=== PATIENT | male | born 1990 | race Caucasian/White ===

== ENCOUNTER 2023-06-20 14:33 | Emergency (ER) | payer OTHER, SELFPAY ==
[2023-06-20] VITALS (10 sets, daily range): BP systolic 110–147; BP diastolic 53–64; PULSE 73–88; RESP 18; TEMP 37.1; O2SAT 97–100; BMI 29.9
--- NOTE | 2023-06-20 15:27 | ED_ITS ---
HPI - Nausea/Vomiting/Diarrhea <Joshua Bose PA-C - Last Filed: 06/20/23 18:41> General Chief complaint: Nausea/Vomiting/Diarrhea Stated complaint: Hungover, N/V Time Seen by Provider: 06/20/23 14:51 Source: patient Mode of arrival: Ambulatory History of Present Illness HPI Narrative: This is a 32-year-old male presents to the emergency department due to viral episodes of nausea and vomiting since about midnight this morning. He states that he drank a box and a half of wine which is more than he usually drinks. Denies any chest pain, abdominal pain, or any other concerning signs or symptoms. States that the only reason he came he was with his because his job told him to. States that he was chronically anemic. Related Data Previous Rx's Medication Instructions Recorded chlordiazepoxide HCl 25 mg capsule See Rx Instructions .Route 06/20/23 .COMPLEX #12 caps chlordiazepoxide HCl 25 mg capsule See Rx Instructions .Route 06/20/23 .COMPLEX #12 caps Allergies Allergy/AdvReac Type Severity Reaction Status Date / Time No Known Drug Allergies Allergy Verified 06/20/23 14:43 Review of Systems <Joshua Bose PA-C - Last Filed: 06/20/23 18:41> Review of Systems Narrative: GENERAL: Denies chills, fatigue, malaise, fever, sweats. HEENT: Denies sinus pain, ear pain, sore throat, difficulty swallowing, dizziness. RESPIRATORY: Denies dyspnea, cough, wheezing, hemoptysis, sputum. CARDIOVASCULAR: Denies chest pain, palpitations, orthopnea, edema, GASTROINTESTINAL: Reports nausea, vomiting, denies abdominal pain, diarrhea, constipation, melena. : Denies dysuria, frequency, incontinence, hematuria, urinary retention. MUSCULOSKELETAL: denies weakness, joint pain, or bony pain SKIN: Mildly jaundiced NEUROLOGIC: Denies weakness, headache, numbness, change in speech, confusion, seizures, incoordination. PSYCHIATRIC: No concerning psychosocial issues. 12 point review of systems is negative except for those stated above Patient History <Joshua Bose PA-C - Last Filed: 06/20/23 18:41> Social History Smoking Status: Never smoker Smoking Status: Never smoker tobacco type: smokeless tobacco alcohol intake frequency: 0-2 drinks per day Substance Use Type: does not use Exam <LOLA Farah Last Filed: 06/20/23 18:41> Narrative Exam Narrative: GENERAL: Well-developed patient, in mild distress. HEAD: Atraumatic. Normocephalic. EYES: Pupils equal round and reactive. Extraocular motions intact. No scleral icterus. No injection or drainage. ENT: Nose without bleeding, purulent drainage. Throat without erythema, tonsillar hypertrophy or exudate. Airway patent. NECK: Trachea midline. Non tender EXTREMITIES: No edema or joint tenderness. NEURO: AOx3. SKIN: No rash or erythema of visible areas Abdomen: No tenderness to palpation Initial Vital Signs Initial Vital Signs: Vital Signs Temperature 98.7 F 06/20/23 14:43 Pulse Rate 87 06/20/23 14:43 Respiratory Rate 18 06/20/23 14:43 Blood Pressure 147/64 H 06/20/23 14:43 Pulse Oximetry 99 06/20/23 14:43 Oxygen Delivery Method Room Air 06/20/23 14:43 <Sary Courtney DO - Last Filed: 06/21/23 14:39> Initial Vital Signs Initial Vital Signs: Vital Signs Temperature 98.7 F 06/20/23 14:43 Pulse Rate 87 06/20/23 14:43 Respiratory Rate 18 06/20/23 14:43 Blood Pressure 147/64 H 06/20/23 14:43 Pulse Oximetry 99 06/20/23 14:43 Oxygen Delivery Method Room Air 06/20/23 14:43 Course <LOLA Farah Last Filed: 06/20/23 18:41> Orders Ordered: Discontinued Medications Folic Acid (Folic Acid 1 Mg Tablet) 1 mg PO NOW ONE Stop: 06/20/23 16:23 Last Admin: 06/20/23 16:38 Dose: 1 mg Documented By: RB Sodium Chloride (Normal Saline 0.9%) 1,000 mls @ 1,000 mls/hr IV BOLUS ONE Stop: 06/20/23 15:46 Last Infusion: 06/20/23 16:48 Dose: Infused Documented By: Admin: 06/20/23 15:32 Dose: 1,000 mls/hr Documented By: RB Thiamine HCl 100 mg/ Sodium (Chloride) 101 mls @ 404 mls/hr IV NOW ONE Stop: 06/20/23 16:23 Last Infusion: 06/20/23 17:08 Dose: Infused Documented By: Admin: 06/20/23 16:39 Dose: 404 mls/hr Documented By: RB Ondansetron HCl (Ondansetron 4 Mg Odt) 4 mg PO NOW PRN PRN Reason: Nausea And Vomiting Ondansetron HCl (Ondansetron 4 Mg/2 Ml Inj) 4 mg IV NOW PRN PRN Reason: Nausea And Vomiting Last Admin: 06/20/23 15:32 Dose: 4 mg Documented By: RB Phenobarbital (Phenobarbital 65 Mg/Ml Vial) 260 mg IV NOW ONE Stop: 06/20/23 16:11 Last Admin: 06/20/23 16:38 Dose: 260 mg Documented By: RB Vital Signs Vital signs: Vital Signs - 8 hr 06/20/23 14:43 06/20/23 16:10 06/20/23 16:15 Temperature 98.7 F Pulse Rate 87 75 76 Respiratory Rate 18 18 18 Blood Pressure 147/64 H 110/53 L 117/61 Pulse Oximetry 99 100 100 Oxygen Delivery Method Room Air Room Air 06/20/23 16:30 06/20/23 16:45 06/20/23 17:00 Temperature Pulse Rate 73 75 76 Respiratory Rate 18 18 18 Blood Pressure 120/61 118/63 123/57 L Pulse Oximetry 99 98 98 Oxygen Delivery Method Room Air Room Air Room Air 06/20/23 17:15 06/20/23 17:30 06/20/23 17:45 Temperature Pulse Rate 78 77 88 Respiratory Rate 18 Blood Pressure 118/62 115/58 L 116/58 L Pulse Oximetry 97 98 99 Oxygen Delivery Method Room Air Room Air 06/20/23 18:00 Temperature Pulse Rate 79 Respiratory Rate Blood Pressure 114/58 L Pulse Oximetry 98 Oxygen Delivery Method Room Air <Sary Courtney DO - Last Filed: 06/21/23 14:39> Orders Ordered: Discontinued Medications Folic Acid (Folic Acid 1 Mg Tablet) 1 mg PO NOW ONE Stop: 06/20/23 16:23 Last Admin: 06/20/23 16:38 Dose: 1 mg Documented By: BREANNE Sodium Chloride (Normal Saline 0.9%) 1,000 mls @ 1,000 mls/hr IV BOLUS ONE Stop: 06/20/23 15:46 Last Infusion: 06/20/23 16:48 Dose: Infused Documented By: Admin: 06/20/23 15:32 Dose: 1,000 mls/hr Documented By: BREANNE Thiamine HCl 100 mg/ Sodium (Chloride) 101 mls @ 404 mls/hr IV NOW ONE Stop: 06/20/23 16:23 Last Infusion: 06/20/23 17:08 Dose: Infused Documented By: Admin: 06/20/23 16:39 Dose: 404 mls/hr Documented By: BREANNE Ondansetron HCl (Ondansetron 4 Mg Odt) 4 mg PO NOW PRN PRN Reason: Nausea And Vomiting Ondansetron HCl (Ondansetron 4 Mg/2 Ml Inj) 4 mg IV NOW PRN PRN Reason: Nausea And Vomiting Last Admin: 06/20/23 15:32 Dose: 4 mg Documented By: BREANNE Phenobarbital (Phenobarbital 65 Mg/Ml Vial) 260 mg IV NOW ONE Stop: 06/20/23 16:11 Last Admin: 06/20/23 16:38 Dose: 260 mg Documented By: BREANNE Vital Signs Vital signs: Vital Signs - 8 hr 06/20/23 14:43 06/20/23 16:10 06/20/23 16:15 Temperature 98.7 F Pulse Rate 87 75 76 Respiratory Rate 18 18 18 Blood Pressure 147/64 H 110/53 L 117/61 Pulse Oximetry 99 100 100 Oxygen Delivery Method Room Air Room Air 06/20/23 16:30 06/20/23 16:45 06/20/23 17:00 Temperature Pulse Rate 73 75 76 Respiratory Rate 18 18 18 Blood Pressure 120/61 118/63 123/57 L Pulse Oximetry 99 98 98 Oxygen Delivery Method Room Air Room Air Room Air 06/20/23 17:15 06/20/23 17:30 06/20/23 17:45 Temperature Pulse Rate 78 77 88 Respiratory Rate 18 Blood Pressure 118/62 115/58 L 116/58 L Pulse Oximetry 97 98 99 Oxygen Delivery Method Room Air Room Air 06/20/23 18:00 Temperature Pulse Rate 79 Respiratory Rate Blood Pressure 114/58 L Pulse Oximetry 98 Oxygen Delivery Method Room Air MDM - Nausea/Vomiting/Diarrhea <Joshua Bose PA-C - Last Filed: 06/20/23 18:41> Lab Data 06/20/23 15:20 06/20/23 15:20 Labs: Lab Results 06/20/23 Range/Units 15:20 WBC 3.9 L (4.5-11.0) X10^3/uL RBC 3.22 L (4.5-5.9) X10^6/uL Hgb 8.6 L (13.5-17.5) g/dL Hct 26.0 L (41-53) % MCV 80.9 (80-100) fL MCH 26.6 (26-34) PG MCHC 32.9 (30-36) % RDW 18.4 H (11.6-14.8) % Plt Count 100 L (150-400) X10^3/uL Neut % (Auto) 77.4 H (50-75) % Lymph % (Auto) 10.1 L (25-40) % [place] % (Auto) 10.4 (3-14) % Eos % (Auto) 0.1 L (2-4) % Baso % (Auto) 2.0 (0-2) % Neut # (Auto) 3000 (2570-1057) /uL Lymph # (Auto) 400 L (2683-4631) /uL [place] # (Auto) 400 (0-900) /uL Eos # (Auto) 0 (0-450) /uL Baso # (Auto) 100 (0-100) /uL PT 15.0 H (9.4-12.5) SECONDS INR 1.3 (0.9-1.3) Sodium 139 (137-145) mmol/L Potassium 3.8 (3.4-5.1) mmol/L Chloride 105 (98-107) mmol/L Carbon Dioxide 26 (22-32) mmol/L BUN 8 L (9-20) mg/dL Creatinine 0.42 L (0.66-1.25) mg/dL Estimated GFR > 60 (>60) mL/min BUN/Creatinine Ratio 19.0 (6-22) Glucose 97 (70-100) mg/dL Calcium 9.3 (8.4-10.2) mg/dL Total Bilirubin 5.8 H (0.2-1.3) mg/dL AST 146 H (17-59) IU/L ALT 44 (<50) IU/L Alkaline Phosphatase 142 H (38-126) U/L Total Protein 7.6 (6.3-8.2) g/dL Albumin 4.4 (3.5-5.0) g/dL Globulin 3.2 (1.7-4.1) g/dL Albumin/Globulin Ratio 1.4 (1.0-2.8) Lipase 209 (23-300) U/L Acetaminophen < 10 (10-30) ug/mL Ethyl Alcohol < 10 ( - 10) mg/dL Imaging Data US - abdomen: Radiologist's Impression: [address] [address] Ultrasound Report Signed Patient: Rell Jones MR#: [id number] : 1990 Acct:[id number] Age/Sex: 32 / M Date of Service: 06/20/23 Loc: ED Accession Number: [id number] Procedure: US abdomen limited Ordering Provider: Sary Courtney D.O. PROCEDURE: US ABDOMEN LIMITED INDICATIONS: RUQ elevated bili, etoh abuse TECHNIQUE: Real-time scanning was performed of the abdominal and retroperitoneal organs, with image documentation. COMPARISON: None. FINDINGS: Liver: Liver is normal in size and demonstrates diffusely increased echotexture. Portal vein is patent with hepatopetal flow. Gallbladder: There are mobile gallstones. Gallbladder is distended. No wall thickening. No pericholecystic edema. Negative sonographic Silva's sign. Biliary ducts: Intrahepatic bile ducts are non-dilated. Extrahepatic bile duct caliber measures 5.7 mm. Normal is 6-7 mm or less in diameter, or 10 mm or less post-cholecystectomy. Pancreas: Obscured by overlying bowel gas. Miscellaneous: No free abdominal fluid. IMPRESSION: 1. Diffusely increased hepatic echotexture. This finding is most likely secondary to hepatic fatty infiltration although other hepatocellular disease may have a similar appearance. Recommend clinical correlation. 2. Cholelithiasis. No ultrasound findings to suggest acute cholecystitis. 3. Pancreas obscured by overlying bowel gas. Dictated by: Max Zhou M.D. on 06/20/2023 at 16:59 Approved by: Max Zhou M.D. on 06/20/2023 at 17:02 MDM Narrative Medical decision making narrative: ED course: This is a 32-year-old male presenting to the emergency department due to nausea and vomiting after drinking more than usual last night. During the course of the counter he was noted to develop some diaphoresis as well as tremors with a CIWA score of 9. Phenobarbital was given which significantly improved his symptoms. He was lab work was notable for a elevated bilirubin. Right upper quadrant ultrasound was ordered which showed diffusely increased hepatic echotexture most likely secondary to hepatic fatty infiltration. Recommended he follow up with GI outpatient regarding this. It also showed cholelithiasis with the elevated bilirubin of 5.8. Patient not presenting with any significant abdominal tenderness to palpation and will follow up with GI outpatient regarding this. Did offer him a Librium prescription which patient says he would like to try. Patient is comfortable discharging home. No other significant abnormalities. CC: Nausea and vomiting Complicating co-morbidities: Chronic alcohol use Data collected from: Previous notes Medical records reviewed: Patient was not been to this emergency department in the past. Differential considered, but not limited to: Acute alcohol withdrawal, alcohol intoxication, gastroenteritis Exam documented above, pertinent findings include: Mild jaundice noticed as well as diaphoresis and mild tremors Lab Test results independently reviewed as above. Pertinent findings: Elevated total bili Hwang of 5.8. Elevated AST of 146 as well as elevated alk-phos of 142. Hemoglobin 8.6 which the patient states it is chronic for him. No active bleeding. Imaging studies independently reviewed: As above in ED course Scores Used: None MIPS Elements: None Consultations: None Treatments: Phenobarbital 260 mg Re-evaluations: Patient's symptoms improved after phenobarbital Discussion: Discussed plan with the patient was comfortable with the plan Diagnosis: Alcohol withdrawal Disposition: see below, along with detailed discharge instructions that have been reviewed with patient as well as indications for ED re-evaluation and additional outpatient follow up <Sary Courtney, - Last Filed: 06/21/23 14:39> Lab Data Labs: Lab Results 06/20/23 Range/Units 15:20 WBC 3.9 L (4.5-11.0) X10^3/uL RBC 3.22 L (4.5-5.9) X10^6/uL Hgb 8.6 L (13.5-17.5) g/dL Hct 26.0 L (41-53) % MCV 80.9 (80-100) fL MCH 26.6 (26-34) PG MCHC 32.9 (30-36) % RDW 18.4 H (11.6-14.8) % Plt Count 100 L (150-400) X10^3/uL Neut % (Auto) 77.4 H (50-75) % Lymph % (Auto) 10.1 L (25-40) % [place] % (Auto) 10.4 (3-14) % Eos % (Auto) 0.1 L (2-4) % Baso % (Auto) 2.0 (0-2) % Neut # (Auto) 3000 (5036-6806) /uL Lymph # (Auto) 400 L (6849-8037) /uL [place] # (Auto) 400 (0-900) /uL Eos # (Auto) 0 (0-450) /uL Baso # (Auto) 100 (0-100) /uL PT 15.0 H (9.4-12.5) SECONDS INR 1.3 (0.9-1.3) Sodium 139 (137-145) mmol/L Potassium 3.8 (3.4-5.1) mmol/L Chloride 105 (98-107) mmol/L Carbon Dioxide 26 (22-32) mmol/L BUN 8 L (9-20) mg/dL Creatinine 0.42 L (0.66-1.25) mg/dL Estimated GFR > 60 (>60) mL/min BUN/Creatinine Ratio 19.0 (6-22) Glucose 97 (70-100) mg/dL Calcium 9.3 (8.4-10.2) mg/dL Total Bilirubin 5.8 H (0.2-1.3) mg/dL AST 146 H (17-59) IU/L ALT 44 (<50) IU/L Alkaline Phosphatase 142 H (38-126) U/L Total Protein 7.6 (6.3-8.2) g/dL Albumin 4.4 (3.5-5.0) g/dL Globulin 3.2 (1.7-4.1) g/dL Albumin/Globulin Ratio 1.4 (1.0-2.8) Lipase 209 (23-300) U/L Acetaminophen < 10 (10-30) ug/mL Ethyl Alcohol < 10 ( - 10) mg/dL Discharge Plan Departure Patient Disposition: Home Clinical Impression: Vomiting and diarrhea, Cholelithiasis, Fatty liver Activity Restrictions/Additional Instructions: Thank you for coming to the [facility] Emergency Department today. As we discussed you are welcome to take the Librium prescribed. This is for review would like to stop alcohol. Please do not drink while taking these medications. They should help with alcohol withdrawal symptoms. You should also fit follow up with a GI physician that your primary care provider's able to refer you to for further investigation regarding your liver as well as gallbladder. Please return to the emergency department if you develop any significant new and worsening nausea or vomiting, or any other concerning signs or symptoms. I hope you feel better soon. Please follow up with your primary care provider within a week if your symptoms continue. If you do not have a primary care provider please contact the [facility] Resource line at [phone]. They will ask some questions about your medical history and help you get set up with a provider in the community. Prescriptions: New chlordiazepoxide HCl 25 mg capsule See Rx Instructions .ROUTE .COMPLEX Qty: 12 0RF Rx Instructions: Please take 25 MG four times a day for the first day, three times a day for the next day, two times a day for the 3rd day, one time a day for the 4th day, and nightly for the last two days chlordiazepoxide HCl 25 mg capsule See Rx Instructions .ROUTE .COMPLEX Qty: 12 0RF Rx Instructions: Please take 25 MG four times a day for the first day, three times a day for the next day, two times a day for the 3rd day, one time a day for the 4th day, and nightly for the last two days Stand Alone Forms: Patient Portal/API ED Sign-out <Sary Courtney DO - Last Filed: 06/21/23 14:39> Cosign ED Attending Edilberto Attestation: I was immediately available in the department for consultation. Case was discussed. Suspect alcoholic cirrhosis need for follow-up thyroid patient wish for discharge home recommend alcohol cessation with follow up with Gastroenterology follow up.
[2023-06-20 15:29] LABS: Add Manual Diff / Slide Review NO; Basophils Absolute Auto 100 /uL (0-100); Eosinophils Absolute Auto 0 /uL (0-450); Eosinophils Percent Auto 0.1 % (2-4); Hemoglobin 8.6 g/dL (13.5-17.5); Lymphocytes Absolute Auto 400 /uL (1100-4500); Lymphocytes Percent Auto 10.1 % (25-40); Mean Corpuscular HGB Conc 32.9 % (30-36); Mean Corpuscular Hemoglobin 26.6 PG (26-34); Mean Corpuscular Volume 80.9 fL (80-100); Monocytes Absolute Auto 400 /uL (0-900); Monocytes Percent Auto 10.4 % (3-14); Neutrophils Absolute Auto 3000 /uL (1500-7000); Neutrophils Percent Auto 77.4 % (50-75); Platelet Count 100 X10^3/uL (150-400); Red Blood Cell Count 3.22 X10^6/uL (4.5-5.9); Red Cell Distribution Width 18.4 % (11.6-14.8); White Blood Cell Count 3.9 X10^3/uL (4.5-11.0)
[2023-06-20] MEDS: ONDANSETRON 4 MG/2 ML INJ IV (15:32)
[2023-06-20] MEDS: SODIUM CHLORIDE 0.9% 1,000 ML 1000 ML IV (15:32)
[2023-06-20 15:39] LABS: INR 1.3 (0.9-1.3)
[2023-06-20 15:45] LABS: Alanine Aminotransferase 44 IU/L (<50); Albumin 4.4 g/dL (3.5-5.0); Albumin Globulin Ratio 1.4 (1.0-2.8); Alkaline Phosphatase 142 U/L (38-126); Aspartate Aminotransferase 146 IU/L (17-59); Bilirubin Total 5.8 mg/dL (0.2-1.3); Blood Urea Nitrogen 8 mg/dL (9-20); Calcium 9.3 mg/dL (8.4-10.2); Carbon Dioxide 26 mmol/L (22-32); Chloride 105 mmol/L (98-107); Estimated Glomerular Filt Rate > 60 mL/min (>60); Globulin 3.2 g/dL (1.7-4.1); Glucose 97 mg/dL (70-100); HEMOLYSIS < 15 (0-50); Lipase 209 U/L (23-300); Potassium 3.8 mmol/L (3.4-5.1); Sodium 139 mmol/L (137-145); Total Protein 7.6 g/dL (6.3-8.2)
--- NOTE | 2023-06-20 15:58 | DI.US.S_ITS ---
PROCEDURE: US ABDOMEN LIMITED INDICATIONS: RUQ elevated bili, etoh abuse TECHNIQUE: Real-time scanning was performed of the abdominal and retroperitoneal organs, with image documentation. COMPARISON: None. FINDINGS: Liver: Liver is normal in size and demonstrates diffusely increased echotexture. Portal vein is patent with hepatopetal flow. Gallbladder: There are mobile gallstones. Gallbladder is distended. No wall thickening. No pericholecystic edema. Negative sonographic Silva's sign. Biliary ducts: Intrahepatic bile ducts are non-dilated. Extrahepatic bile duct caliber measures 5.7 mm. Normal is 6-7 mm or less in diameter, or 10 mm or less post-cholecystectomy. Pancreas: Obscured by overlying bowel gas. Miscellaneous: No free abdominal fluid. IMPRESSION: 1. Diffusely increased hepatic echotexture. This finding is most likely secondary to hepatic fatty infiltration although other hepatocellular disease may have a similar appearance. Recommend clinical correlation. 2. Cholelithiasis. No ultrasound findings to suggest acute cholecystitis. 3. Pancreas obscured by overlying bowel gas. Dictated by: Max Zhou M.D. on 06/20/2023 at 16:59 Approved by: Max Zhou M.D. on 06/20/2023 at 17:02
--- NOTE | 2023-06-20 16:07 | PC.NURSE ---
Provider informed of patient CIWA of 9.
[2023-06-20 16:16] LABS: Acetaminophen < 10 ug/mL (10-30); Ethanol (ETOH) < 10 mg/dL
[2023-06-20] MEDS: PHENobarbital 65 MG/ML VIAL 260 MG IV (16:38)
[2023-06-20] MEDS: FOLIC ACID 1 MG TABLET PO (16:38)
[2023-06-20] MEDS: THIAMINE 100 MG in SODIUM CHLORIDE 0.9% 100 ML 404 MG IV (16:39)
== END 2023-06-20 18:25 | disposition home or self-care (01) ==
PROVIDERS: Emergency Medicine; Emergency Provider Physician Assistant Medical
DX: K80.20 Calculus of gallbladder without cholecystitis without obstruction (principal); K76.0 Fatty (change of) liver, not elsewhere classified; R11.2 Nausea with vomiting, unspecified
CPT/HCPCS: 36415; 76705; 80053; 80320; 80329; 83690; 85025; 85610; 96361; 96374; 96375; 99284; G0480; J2405; J2560